=== PATIENT | female | born 1980 ===

== ENCOUNTER 2019-06-28 23:00 | Inpatient (IN) | payer OTHER ==
[2019-06-28] MEDS: ELECTROLYTE-148 SOLN 1,000 ML IV SCH (23:15)
[2019-06-29 00:38] LABS: BASO % 0.3 % (0-2.0); EOS % 0.7 % (0-4.5); HEMATOCRIT 36.7 % (32.4-45.2); HEMOGLOBIN 12.3 GM/dL (10.7-15.3); LYMPH % 23.6 % (8-40); MCH 30.5 pg (25.7-33.7); MCHC 33.6 g/dl (32.0-36.0); MEAN CELL VOLUME 90.8 fl (80-96); MEAN PLT VOLUME 10.3 fl (7.5-11.1); MONO % 8.5 % (3.8-10.2); NEUT % 66.9 % (42.8-82.8); PLATELET COUNT 192 K/MM3 (134-434); RBC 4.04 M/mm3 (3.60-5.2); RDW 13.9 % (11.6-15.6); WHITE BLOOD COUNT 11.7 K/mm3 (4.0-10.0)
[2019-06-29 00:49] LABS: INR 0.92 (0.83-1.09); PROTHROMBIN TIME (PATIENT) 10.8 SEC (9.7-13.0)
[2019-06-29] MEDS ORDERED: CITRIC ACID/SODIUM CITRATE 30 ML UNIT-DOSE CUP PO ONE (00:50)
[2019-06-29 00:51] LABS: ACTIVATED PTT 27.6 SECONDS (25.2-36.5)
[2019-06-29 00:57] LABS: BLOOD UREA NITROGEN 15.2 mg/dL (7-18); CALCIUM 8.6 mg/dL (8.5-10.1); CREATININE 0.6 mg/dL (0.55-1.3)
--- NOTE | 2019-06-29 00:58 | HP ---
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: No: Alzheimer's, CVA, Dementia, Migraine, Multiple Sclerosis, Peripheral Neuropathy, Parkinson's, Seizure, Syncope, TIA, Vertigo, Other Cardiovascular: No: AFIB, Aneurysm, Aortic Insufficiency, Aortic Stenosis, CAD, CHF, Deep Vein Thrombosis, HTN, Hyperlipdemia, TN, Mitral Insufficiency, Mitral Stenosis, Murmur, Pulmonary Hypertension, Other Pulmonary: No: Asthma, Bronchitis, Cancer, COPD, O2 Dependent, Pneumonia, Previously Intubated, Pulmonary Embolus, Pulmonary Fibrosis, Sleep Apnea, Other Gastrointestinal: No: Ascites, Cancer, Constipation, Crohn's Disease, Diverticulitis, Diverticulosis, Esophageal Varices, Gastritis, GERD, GI Bleed, Hemorrhoids, Hiatal Hernia, Inflamatory Bowel Disease, Irritable Bowel Disease, Pancreatitis, Peptic Ulcer Disease, Ulcerative Colitis, Other Hepatobiliary: No: Cirrhosis, Cholelithiasis, Cholecystitis, Choledocholithiasis , Hepatitis A, Hepatitis B, Hepatitis C, Other Renal/: No: Renal Failure, Renal Inusuff, BPH, Cancer, Hematuria, Hemodialysis , Neurogenic Bladder, Renal Calculi, UTI, Other Reproductive: No: Ectopic , Endometriosis, Fibroids, PID, Polycystic Ovary Syndrome, Postmenopausal, Other ...Para: 1 Heme/Onc: No: Anemia, B12 Deficiency, Bleeding Disorder, Cancer, Current Chemotherapy, Current Radiation Therapy, Hemochromatosis, Hypercoaguable State, Myeloproliferative Synd, Sickle Cell Disease, Sickle Cell Trait, Thrombocytopenia, Other Infectious Disease: No: AIDS, C-Diff, Herpes Zoster, HIV, MRSA, STD's, Tuberculosis, VREF, Other Psych: No: Addictions, Anxiety, Bipolar, Depression, Panic, Psychosis, Schizophrenia, Other Musculoskeletal: No: Bursitis, Chronic low back pain, Hemiparesis, Hemiplegia, Osteoarthritis, Paraplegia, Other Rheumatology: No: Fibromyalgia, Gout, Lupus, Rheumatoid Arthritis, Sarcoidosis, Vasculitis, Other ENT: No: Allergic Rhinitis, Sinusitis, Other Endocrine: No: Alexx's Disease, Oakland's Disease, Diabetes Insipidus, Diabetes Mellitus, Hyperparathyroidism, Hyperthyroidism, Hypothyroidism, Osteopenia, SIADH, Other Dermatology: No: Basal Cell, Cellulitis, Eczema, Melanoma, Psoriasis, Squamous Cell, Other - Past Surgical History Past Surgical History: Yes: Hx Myomectomy: No Hx Transabdominal Cerclage: No - Advance Directives Advance Directives: Yes: Living Will - Smoking History Smoking history: Current every day smoker Have you smoked in the past 12 months: No - Alcohol/Substance Use Hx Alcohol Use: No History of Substance Use: reports: None - Social History Usual Living Arrangement: Yes: With Significant Other Do you think of yourself as: Straight/Heterosexual ADL: Independent History of Recent Travel: No Family Medical History Family History: Denies Review of Systems - Review of Systems Constitutional: reports: No Symptoms Eyes: reports: No Symptoms HENT: reports: No Symptoms Neck: reports: No Symptoms Cardiovascular: reports: No Symptoms Respiratory: reports: No Symptoms Gastrointestinal: reports: No Symptoms Genitourinary: reports: No Symptoms Breasts: reports: No Symptoms Reported Musculoskeletal: reports: No Symptoms Integumentary: reports: No Symptoms Neurological: reports: No Symptoms Endocrine: reports: No Symptoms Hematology/Lymphatic: reports: No Symptoms Psychiatric: reports: No Symptoms Physical Exam - Maternity Constitutional: Yes: Well Nourished, No Distress, Calm Eyes: Yes: WNL, Conjunctiva Clear, EOM Intact HENT: Yes: WNL, Atraumatic, Normocephalic Neck: Yes: WNL, Supple, Trachea Midline Cardiovascular: Yes: WNL, Regular Rate and Rhythm Lungs: Clear to auscultation Breast(s): Yes: WNL - Abdominal Exam/OB Number of Fetuses: Single Presentation: Vertex Contractions: Yes Regularity: Irregular Intensity: Mild/Mod Monitor Mode: External Heart Rate Location: [facility] Category: I Accelerations: Uniform Decelerations: None - Vaginal Exam/OB Vaginal Bleediing: No Speculum Exam: No Dilatation (cm): 2 Effacement (%): 60 Amniotic Membrane Status: Ruptured Amniotic Fluid: Yes: Clear Presentation: Vertex/Position Station: -2 - Physical Exam Musculoskeletal: Yes: WNL Extremities: Yes: WNL Edema: Yes Edema: LUE: 1+, RUE: 1+, LLE: 1+, RLE: 1+ Integumentary: Yes: WNL Deep Tendon Reflex Grade: Normal +2 ...Motor Strength: WNL Psychiatric: Yes: WNL, Alert, Oriented - Labs Lab Results: CBC, BMP 06/29/19 00:00 Hemorrhage Risk Assessment - Risk Factors Medium Risk Factors: Yes: Prior , uterine surgery,or multiple laparotomies Risk Score: 1 Risk Level: Medium Risk Assessment/Plan srom at 35 weeks, for c s , antibiotic given
[2019-06-29] MEDS ORDERED: OXYTOCIN 10 UNITS/ML VIAL ONE (01:30)
[2019-06-29] MEDS ORDERED: CEFAZOLIN 2 GM/D5W 2 GM/50 ML ML IVPB ONE (01:30)
[2019-06-29] MEDS ORDERED: OXYTOCIN 20 UNITS in 0.9% NS 20 UNIT/1,000 ML INFUS.BAG IV ONE (01:31)
[2019-06-29] MEDS ORDERED: morphine SULFATE/PF 0.5 MG/ML (2cc Syringe - QUVA) ONE (01:32)
[2019-06-29] MEDS ORDERED: KETOROLAC TROMETHAMINE 30 MG/1 ML VIAL ONE (01:43)
[2019-06-29] MEDS ORDERED: METHYLERGONOVINE MALEATE 0.2 MG/1 ML AMP IM PRN (02:45)
[2019-06-29] MEDS ORDERED: oxyCODONE HCL 5 MG TABLET PO PRN (02:45)
--- NOTE | 2019-06-29 02:50 | OP ---
Operative Note - Note: Operative Date: 06/29/19 Pre-Operative Diagnosis: repeat c s in labor Operation: repeat lt c s Post-Operative Diagnosis: Same as Pre-op Surgeon: Ajit Brar Soda Worker: Heraclio Peres Anesthesia: Spinal Estimated Blood Loss (mls): 500 (no complications ) Operative Report Dictated: Yes
[2019-06-29 03:37] VITALS: BMI 28.3
[2019-06-29] MEDS: IBUPROFEN 800 MG/8 ML IJ IVPB PRN ×2 (03:45→10:25)
[2019-06-29] MEDS ORDERED: diphenhydrAMINE HCL 25 MG CAPSULE (FP) PO PRN (11:43)
[2019-06-29] MEDS: SIMETHICONE 80 MG TAB.CHEW (FP) PO PRN ×3 (14:10→21:29)
[2019-06-29] MEDS: ACETAMINOPHEN 325 MG TABLET (FP) PO PRN ×3 (14:10→21:30)
[2019-06-29] MEDS: IBUPROFEN 600 MG TABLET (FP) PO PRN ×3 (14:11→21:30)
--- NOTE | 2019-06-29 21:04 | OP ---
DATE OF OPERATION: 06/29/2019 PREOPERATIVE DIAGNOSIS: Repeat section, previous history of section, in labor after spontaneous rupture of membranes. POSTOPERATIVE DIAGNOSIS: Repeat section, previous history of section, in labor after spontaneous rupture of membranes. PROCEDURE: Repeat low transverse section. SURGEON: Cleo Vaca MD CARBURETOR MECHANIC: PATRIZIA Hammond ANESTHESIA: Spinal by ROCIO Madsen. ESTIMATED BLOOD LOSS: About 500 mL. URINE OUTPUT: Draining clear urine. INDICATION: This is a 38-year-old female patient, 35 weeks and a few days , with previous history of low transverse section, status post grossly, spontaneous rupture of membranes yesterday night, June 28, at about 11:00 at nighttime; so, patient came into the hospital to be evaluated. Patient was confirmed to be grossly ruptured of membranes. Patient had previous low transverse section, and patient started having labor. Patient was catalino every 3-5 minutes, so patient was felt the pain. Pain level 9/10. So, at this time, there was a going on in the OR; so, we waited until that finished, and we continued to follow the . So, patient was taken to the OR and placed on the operating table in supine position. After the spinal anesthesia was obtained, patient's abdomen and pelvis were prepped and draped in the usual sterile manner. Pfannenstiel incision was made. Incision was made through skin and subcutaneous tissue, fascia was nicked in the midline. The fascia extended bilaterally. Intraperitoneal cavity was entered. Bladder flap was created. Low transverse segment was entered. Baby delivered from LOT position. Baby was handed off to the naval special warfare medic after umbilical cord doubly clamped and cut. Cord blood gases obtained. Placenta was removed. The uterus closed in single layer, first layer interlocking Vicryl sutures. Good hemostasis. Both gutters were cleaned. Both ovaries, fallopian tubes, and uterus were within normal limits. No complications. Patient tolerated the procedure well. Draining clear urine. Blood loss about 500 mL. No complications. Peritoneum was closed. Fascia was closed. Skin was closed. Transferred to recovery room in stable condition. CLEO VACA MD [id number]
[2019-06-29] MEDS: SENNOSIDES/DOCUSATE COMBO (SENNA PLUS) TABLET (UD) PO PRN (21:30)
[2019-06-30] MEDS ORDERED: BISACODYL 10 MG SUPP.RECT RC PRN (02:45)
[2019-06-30] MEDS: IBUPROFEN 600 MG TABLET (FP) PO PRN ×4 (05:56→19:21)
[2019-06-30] MEDS: SIMETHICONE 80 MG TAB.CHEW (FP) PO PRN ×4 (05:56→19:19)
[2019-06-30] MEDS: ACETAMINOPHEN 325 MG TABLET (FP) PO PRN (05:56)
--- NOTE | 2019-06-30 08:54 | PN ---
Progress Note (short form) - Note Progress Note: Anesthesia Postop Check Note: Patient is s/p c section under spinal anesthesia with duramorph intrathecal for post operative pain control. Post op day one. Patient is doing well, no nausea , vomiting, headache, or backache. Pain under control. No adverse anesthetic complications. Dept of anesthesia will sign off care at this time.
[2019-06-30] MEDS: ENOXAPARIN NA (PORCINE) 40 MG/0.4 ML DISP.SYRIN SQ SCH (09:36)
[2019-06-30] MEDS: oxyCODONE HCL 5 MG TABLET PO PRN ×3 (09:42→19:19)
[2019-06-30 10:01] LABS: BASO % 0.3 % (0-2.0); EOS % 0.1 % (0-4.5); HEMATOCRIT 32.5 % (32.4-45.2); HEMOGLOBIN 10.9 GM/dL (10.7-15.3); LYMPH % 12.9 % (8-40); MCH 30.5 pg (25.7-33.7); MCHC 33.5 g/dl (32.0-36.0); MEAN CELL VOLUME 91.1 fl (80-96); MONO % 5.5 % (3.8-10.2); NEUT % 81.2 % (42.8-82.8); PLATELET COUNT 182 K/MM3 (134-434); RBC 3.57 M/mm3 (3.60-5.2); RDW 14.2 % (11.6-15.6); WHITE BLOOD COUNT 11.7 K/mm3 (4.0-10.0)
--- NOTE | 2019-06-30 19:43 | PN ---
Post Progress Note Post Day: 1 Type of Delivery: Repeat C/S Vital Signs: Vital Signs Temperature 97.6 F 06/30/19 10:22 Pulse Rate 58 L 06/30/19 10:22 Respiratory Rate 20 06/30/19 10:22 Blood Pressure 108/55 L 06/30/19 10:22 O2 Sat by Pulse Oximetry (%) 100 06/29/19 03:30 Breast Exam: Yes: Soft Uterus: Yes: Fundus Firm, Fundus below umbilicus Incision: Yes: Dressing dry and intact Abdomen/GI: Yes: Abdomen soft, Passing flatus, Tolerating PO Lochia: Yes: Serosa Lochia, amount: Small Extremities: Yes: Calves non-tender Perineum: Yes: Intact Activity: Ambulating (doing well , ambulating ) - Labs Labs: CBC WBC 11.7 K/mm3 (4.0-10.0) H 06/30/19 09:46 RBC 3.57 M/mm3 (3.60-5.2) L 06/30/19 09:46 Hgb 10.9 GM/dL (10.7-15.3) 06/30/19 09:46 Hct 32.5 % (32.4-45.2) 06/30/19 09:46 MCV 91.1 fl (80-96) 06/30/19 09:46 MCH 30.5 pg (25.7-33.7) 06/30/19 09:46 MCHC 33.5 g/dl (32.0-36.0) 06/30/19 09:46 RDW 14.2 % (11.6-15.6) 06/30/19 09:46 Plt Count 182 K/MM3 (134-434) 06/30/19 09:46 MPV 9.0 fl (7.5-11.1) D 06/30/19 09:46 Absolute Neuts (auto) 9.5 K/mm3 (1.5-8.0) H 06/30/19 09:46 Neutrophils % 81.2 % (42.8-82.8) D 06/30/19 09:46 Lymphocytes % 12.9 % (8-40) D 06/30/19 09:46 Monocytes % 5.5 % (3.8-10.2) 02/04/20 09:46 Eosinophils % 0.1 % (0-4.5) D 06/30/19 09:46 Basophils % 0.3 % (0-2.0) 06/30/19 09:46 Nucleated RBC % 0 % (0-0) 06/30/19 09:46
[2019-06-30] MEDS: SENNOSIDES/DOCUSATE COMBO (SENNA PLUS) TABLET (UD) PO PRN (22:35)
[2019-07-01] MEDS: oxyCODONE HCL 5 MG TABLET PO PRN ×5 (01:16→19:59)
[2019-07-01] MEDS: IBUPROFEN 600 MG TABLET (FP) PO PRN ×5 (01:16→19:57)
[2019-07-01] MEDS: SIMETHICONE 80 MG TAB.CHEW (FP) PO PRN ×5 (01:17→19:57)
[2019-07-01] MEDS: ENOXAPARIN NA (PORCINE) 40 MG/0.4 ML DISP.SYRIN SQ SCH (09:18)
--- NOTE | 2019-07-01 10:32 | PN ---
Post Progress Note Post Day: 2 Type of Delivery: Repeat C/S Vital Signs: Vital Signs Temperature 98.5 F 06/30/19 22:00 Pulse Rate 80 06/30/19 22:00 Respiratory Rate 18 06/30/19 22:00 Blood Pressure 124/72 06/30/19 22:00 O2 Sat by Pulse Oximetry (%) 100 06/29/19 03:30 Breast Exam: Yes: Soft Uterus: Yes: Fundus Firm, Fundus below umbilicus, Non-tender Incision: Yes: Dressing dry and intact, Sutures intact Abdomen/GI: Yes: Abdomen soft, Passing flatus, Tolerating PO Lochia: Yes: Serosa Lochia, amount: Small Extremities: Yes: Calves non-tender Perineum: Yes: Intact Activity: Ambulating (no complaints ) - Labs Labs: CBC WBC 11.7 K/mm3 (4.0-10.0) H 06/30/19 09:46 RBC 3.57 M/mm3 (3.60-5.2) L 06/30/19 09:46 Hgb 10.9 GM/dL (10.7-15.3) 06/30/19 09:46 Hct 32.5 % (32.4-45.2) 06/30/19 09:46 MCV 91.1 fl (80-96) 06/30/19 09:46 MCH 30.5 pg (25.7-33.7) 06/30/19 09:46 MCHC 33.5 g/dl (32.0-36.0) 06/30/19 09:46 RDW 14.2 % (11.6-15.6) 06/30/19 09:46 Plt Count 182 K/MM3 (134-434) 06/30/19 09:46 MPV 9.0 fl (7.5-11.1) D 06/30/19 09:46 Absolute Neuts (auto) 9.5 K/mm3 (1.5-8.0) H 06/30/19 09:46 Neutrophils % 81.2 % (42.8-82.8) D 06/30/19 09:46 Lymphocytes % 12.9 % (8-40) D 06/30/19 09:46 Monocytes % 5.5 % (3.8-10.2) 06/30/19 09:46 Eosinophils % 0.1 % (0-4.5) D 06/30/19 09:46 Basophils % 0.3 % (0-2.0) 06/30/19 09:46 Nucleated RBC % 0 % (0-0) 06/30/19 09:46
--- NOTE | 2019-07-01 13:18 | PATH ---
Surgical Pathology Report Patient Name: SENIA FARLEY Med. Rec. 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 Electronically Signed Leonor Lazo M.D. Gross Description The specimen is received fresh labeled placenta and is a 385 gram, 15.0 x 13.0 x 2.8 cm. placenta with attached membranes and umbilical cord. The attached membranes are chan, translucent with focal opacities and insert marginally. The umbilical cord measures 29 cm. in length and averages 1.2 cm. in diameter. The cord inserts at the margin. No true knots or strictures are identified. Cut surface of the umbilical cord reveals 3 vessels. The surface is rutherford-blue with minimal fibrin deposition and appropriate caliber vessels. The maternal surface is red-brown with focal defects. Sectioning reveals red-brown, spongy parenchyma. No lesions are identified. Regrader sections are submitted in three cassettes as follows: 1- membrane rolls and umbilical cord; 2-3- full thickness sections of placenta. /06/30/2019 [facility]/06/30/2019
[2019-07-01] MEDS: SENNOSIDES/DOCUSATE COMBO (SENNA PLUS) TABLET (UD) PO PRN (19:57)
[2019-07-02] MEDS: SIMETHICONE 80 MG TAB.CHEW (FP) PO PRN ×3 (04:31→17:15)
[2019-07-02] MEDS: ACETAMINOPHEN 325 MG TABLET (FP) PO PRN ×3 (04:31→17:16)
[2019-07-02] MEDS: IBUPROFEN 600 MG TABLET (FP) PO PRN ×3 (04:32→17:15)
[2019-07-02] MEDS: ENOXAPARIN NA (PORCINE) 40 MG/0.4 ML DISP.SYRIN SQ SCH (10:00)
--- NOTE | 2019-07-02 14:40 | PN ---
Post Progress Note Post Day: 3 Type of Delivery: Repeat C/S Vital Signs: Vital Signs Temperature 97.7 F 07/02/19 09:07 Pulse Rate 68 07/02/19 09:07 Respiratory Rate 20 07/02/19 09:07 Blood Pressure 106/70 07/02/19 09:07 O2 Sat by Pulse Oximetry (%) 100 06/29/19 03:30 Breast Exam: Yes: Soft Uterus: Yes: Fundus Firm, Non-tender Incision: Yes: Dressing dry and intact, Sutures intact Abdomen/GI: Yes: Abdomen soft, Passing flatus, Tolerating PO Lochia: Yes: Serosa Lochia, amount: Small Extremities: Yes: Calves non-tender Perineum: Yes: Intact Activity: Ambulating - Labs Labs: CBC WBC 11.7 K/mm3 (4.0-10.0) H 06/30/19 09:46 RBC 3.57 M/mm3 (3.60-5.2) L 06/30/19 09:46 Hgb 10.9 GM/dL (10.7-15.3) 06/30/19 09:46 Hct 32.5 % (32.4-45.2) 06/30/19 09:46 MCV 91.1 fl (80-96) 06/30/19 09:46 MCH 30.5 pg (25.7-33.7) 06/30/19 09:46 MCHC 33.5 g/dl (32.0-36.0) 06/30/19 09:46 RDW 14.2 % (11.6-15.6) 06/30/19 09:46 Plt Count 182 K/MM3 (134-434) 06/30/19 09:46 MPV 9.0 fl (7.5-11.1) D 06/30/19 09:46 Absolute Neuts (auto) 9.5 K/mm3 (1.5-8.0) H 06/30/19 09:46 Neutrophils % 81.2 % (42.8-82.8) D 06/30/19 09:46 Lymphocytes % 12.9 % (8-40) D 06/30/19 09:46 Monocytes % 5.5 % (3.8-10.2) 06/30/19 09:46 Eosinophils % 0.1 % (0-4.5) D 06/30/19 09:46 Basophils % 0.3 % (0-2.0) 06/30/19 09:46 Nucleated RBC % 0 % (0-0) 06/30/19 09:46
--- NOTE | 2019-07-02 14:42 | DS ---
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 Signs: Vital Signs Temperature 97.7 F 07/02/19 09:07 Pulse Rate 68 07/02/19 09:07 Respiratory Rate 20 07/02/19 09:07 Blood Pressure 106/70 07/02/19 09:07 O2 Sat by Pulse Oximetry (%) 100 06/29/19 03:30 Constitutional: Yes: Well Nourished, No Distress, Calm Eyes: Yes: WNL, Conjunctiva Clear, EOM Intact HENT: Yes: WNL, Atraumatic, Normocephalic Neck: Yes: WNL, Supple, Trachea Midline Cardiovascular: Yes: WNL, Regular Rate and Rhythm Respiratory: Yes: WNL, Regular, CTA Bilaterally Gastrointestinal: Yes: WNL, Normal Bowel Sounds, Soft ...Rectal Exam: Yes: WNL Renal/: Yes: WNL Pelvis: Yes: WNL External Genitalia: Yes: Normal Internal Exam Deferred: No Vaginal Exam: Yes: Normal Cervix: Yes: Normal Uterus: Yes: Normal Adnexa: Normal: Bilateral ....Post : Yes: Uterus firm, Uterus non-tender Breast(s): Yes: WNL Musculoskeletal: Yes: WNL Extremities: Yes: WNL Edema: Yes Edema: LUE: 1+, RUE: 1+, LLE: 1+, RLE: 1+ Integumentary: Yes: WNL Wound/Incision: Yes: Clean/Dry, Well Approximated Neurological: Yes: WNL, Alert, Oriented ...Motor Strength: WNL Psychiatric: Yes: WNL, Alert, Oriented Labs: CBC, BMP 06/30/19 09:46 06/29/19 00:00 Delivery - Delivery Section: Repeat Type of Anesthesia: Spinal Episiotomy/Laceration: None EBL (cc): 500 Delivery, Single - Stages of Labor Date 1st Stage Initiatied: 06/28/19 Time 1st Stage Initiated: 22:30 Date of Delivery: 06/29/19 Time of Delivery: 01:53 Time Placenta Delivered: 01:54 - Condition of Intensive Care Nurse/Audit Clerks Supervisor Present: Yes Name: Martha Britt Gender: Female Weight: 2.637 kg Position: Left, OA Total Hours ROM (Hrs/Mins): 3 HRS/24 MINUTES - 1 Minute Total Score: 9 5 Minutes Total Score: 9 - Feeding Plan Initial Plan: Elected not to breastfeed exclusively throughout hospitalization Discharge Summary Problems reviewed: Yes Reason For Visit: LABOR none Procedures: Principal: repeat lt c s Other Procedures: none Hospital Course: un eventful Health Concerns: none Plan of Treatment: oob as much as possible Goals: return to work in 8 weeks Condition: Good - Instructions Diet, Activity, Other Instructions: Physical activity Resume your normal everyday activity as tolerated no heavy lifting or exercise until seen by your surgeon. You may walk unlimited jayshree of and climb stairs. You may resume driving the car when you feel safe and comfortable behind the wheel. No sexual activity as instructed. Wound care If you have a bandage, leave it on, and keep dry for 48-72 hours. After that time discard the outer bandage. If they are tapes on the skin under the out of bandage leave them in place. They will peel off in the next 7 to 10 days. Do Not Peel them off. You may shower the day after surgery. If there are tapes present on the skin, you may shower over them. Diet There are no dietary restrictions. Eat healthy, high-fiber foods. Drink 6 to 8 glasses of liquid each day. This will assist in keeping your bowels are regular. Pain management You may take Tylenol or acetaminophen or Ibuprofen (for example, Motrin, Advil etc.) from my pain prescription medication is ordered should be taken as prescribed for moderate to severe pain. Call MD for any of the following: call dr allen richard 2weeks appointment Severe pain not relieved by medication Fever of 101 or higher Excessive bleeding or drainage on dressing Inability to urinate Disposition: HOME - Home Medications Comprehensive Discharge Medication List: Ambulatory Orders Ferrous Sulfate [Iron] 1 tab PO DAILY 06/29/19 Pnv 29-1 Tablet 1 tab PO DAILY 06/29/19
[2019-07-03] MEDS: SIMETHICONE 80 MG TAB.CHEW (FP) PO PRN ×2 (01:50→10:40)
[2019-07-03] MEDS: ACETAMINOPHEN 325 MG TABLET (FP) PO PRN ×2 (01:50→10:40)
[2019-07-03] MEDS: IBUPROFEN 600 MG TABLET (FP) PO PRN ×2 (01:50→10:41)
[2019-07-03] MEDS: OXYTOCIN 20 UNITS in 0.9% NS 20 UNIT/1,000 ML INFUS.BAG IV SCH ×2 (01:52→01:55)
[2019-07-03] MEDS: ELECTROLYTE-148 SOLN 1,000 ML IV SCH ×2 (01:53→01:55)
[2019-07-03] MEDS: ENOXAPARIN NA (PORCINE) 40 MG/0.4 ML DISP.SYRIN SQ SCH (10:40)
[2019-07-03 10:54] VITALS: BP 122/72; PULSE 72; TEMP 98.3
== END 2019-07-03 15:30 | disposition home or self-care (01) | DRG 540 ==
LOC: JLDR 23:00 → J3W 06-29 05:00
PROVIDERS: ADMIT Obstetrics & Gynecology; ATTEND Obstetrics & Gynecology
PROC: 10D00Z1 Extraction of Products of Conception, Low, Open Approach (ICD-10-PCS; principal; 2019-06-29)
DX: O34.211 Maternal care for low transverse scar from previous cesarean delivery (principal); N85.8 Other specified noninflammatory disorders of uterus; O60.14X0 Preterm labor third trimester with preterm delivery third trimester, not applicable or unspecified; Z3A.35 35 weeks gestation of pregnancy; Z37.0 Single live birth
CPT/HCPCS: 36415; 80048; 85025; 85610; 85730; 86593; 86850; 86900; 86901; 87389; 88307-TC